=== PATIENT | female | born 1975 | race Caucasian/White ===

== ENCOUNTER 2022-05-02 10:41 | Emergency (ER) | payer OTHER ==
[~2022-05-02 10:41] MED LIST: BACTROBAN NASAL1 GM TOP
[2022-05-02] MEDS ORDERED: BACLOFEN 10MG T10 MG PO (14:48)
== END 2022-05-02 15:02 | disposition home or self-care (01) ==
LOC: FER 10:41
DX: M79.651 Pain in right thigh (principal); G40.909 Epilepsy, unspecified, not intractable, without status epilepticus; Z79.899 Other long term (current) drug therapy; Z87.891 Personal history of nicotine dependence; W22.8XXA Striking against or struck by other objects, initial encounter
CPT/HCPCS: 93971; 96372; J1100; J1885

== ENCOUNTER 2022-06-22 21:50 | Emergency (ER) | payer OTHER ==
[~2022-06-22 21:50] MED LIST changes: +BACLOFEN 10MG T10 MG PO
== END 2022-06-22 23:28 | disposition home or self-care (01) ==
LOC: FER 21:50
DX: S86.912A Strain of unspecified muscle(s) and tendon(s) at lower leg level, left leg, initial encounter (principal); J45.909 Unspecified asthma, uncomplicated; Z88.8 Allergy status to other drugs, medicaments and biological substances; Z91.040 Latex allergy status; Z28.311 Partially vaccinated for COVID-19
CPT/HCPCS: 73590; 96372; J1885

== ENCOUNTER 2022-07-19 20:31 | Emergency (ER) | payer OTHER ==
[2022-07-19] MEDS ORDERED: ULTRAM50 MG PO (21:34)
== END 2022-07-19 21:48 | disposition home or self-care (01) ==
LOC: FER 20:31
DX: M79.651 Pain in right thigh (principal); M25.562 Pain in left knee; J45.909 Unspecified asthma, uncomplicated
CPT/HCPCS: 96372; J1100; J1885

== ENCOUNTER 2022-07-27 10:10 | Emergency (ER) | payer OTHER ==
[~2022-07-27 10:10] MED LIST changes: +ULTRAM50 MG PO
[2022-07-27 12:13] LABS: EOSINOPHIL 3.8 % (0-5); HCT 39.7 % (37.0-47.0); HGB 12.2 g/dl (12.5-16.0); LYMPHOCYTE 32.1 % (15-48); MCH 26.6 pg (25.0-31.0); MCHC 30.7 g/dL (32.0-36.0); MCV 86.7 fL (78.0-100.0); MONOCYTE 6.4 % (0-12); MPV 8.9 fL (6.0-9.5); NEUTROPHIL 56.1 % (41-80); NRBC 0; PLT 345 K/uL (150-400); RBC 4.58 M/uL (4.20-5.40); RDW 14.4 % (11.5-14.0); WBC 8.9 K/uL (4.0-10.5)
[2022-07-27 12:16] LABS: INR 0.98 (0.9-1.2); PROTHROMBIN TIME 12.7 SECONDS (11.9-13.9)
[2022-07-27 12:32] LABS: ALBUMIN 3.2 g/dL (3.4-5.0); BILIRUBIN - TOTAL 0.3 mg/dL (0.2-1.0); BUN/CREAT RATIO (CALC) 14.3 RATIO; CREATININE 0.77 mg/dL (0.51-0.95); GLOBULIN (CALCULATION) 3.5 g/dL; POTASSIUM 4.2 mmol/L (3.5-5.1); TOTAL PROTEIN 6.7 g/dL (6.4-8.2)
[2022-07-27] MEDS ORDERED: TRAMADOL HCL50 MG PO (16:04)
[2022-07-27] MEDS ORDERED: ELIQUIS5 MG PO ×2 (16:04→16:06)
[2022-07-28] MEDS ORDERED: NORCO 5-325 TA1 EACH PO (15:59)
[2022-07-28] MEDS ORDERED: MEDROL 4MG DOSEP4 MG PO (15:59)
== END 2022-07-27 16:20 | disposition home or self-care (01) ==
LOC: FER 10:10
PROVIDERS: Emergency Medicine
DX: I82.442 Acute embolism and thrombosis of left tibial vein (principal); F17.290 Nicotine dependence, other tobacco product, uncomplicated; Z91.040 Latex allergy status
CPT/HCPCS: 36415; 80053; 85025; 85610; 93005; 93971; J1644

== ENCOUNTER 2022-07-28 13:29 | Emergency (ER) | payer OTHER ==
[~2022-07-28 13:29] MED LIST changes: +ELIQUIS5 MG PO; +TRAMADOL HCL50 MG PO
[2022-07-28 14:29] LABS: CORONAVIRUS 2019 SARS-COV-2 NEGATIVE (NEGATIVE); INFLUENZA A NAA NEGATIVE (NEGATIVE)
[2022-07-28] MEDS ORDERED: NORCO 5-325 TA1 EACH PO (15:59)
[2022-07-28] MEDS ORDERED: MEDROL 4MG DOSEP4 MG PO (15:59)
== END 2022-07-28 16:50 | disposition home or self-care (01) ==
LOC: FER 13:29
PROVIDERS: Nurse Practitioner Family
DX: J45.909 Unspecified asthma, uncomplicated (principal); Z88.8 Allergy status to other drugs, medicaments and biological substances; Z91.040 Latex allergy status; Z20.822 Contact with and (suspected) exposure to COVID-19
CPT/HCPCS: J1100; U0002

== ENCOUNTER 2022-07-30 08:30 | Inpatient (IN) | payer OTHER ==
[~2022-07-30] VITALS: Ht 144.8 cm; Wt 92.2 kg
[~2022-07-30 08:30] MED LIST changes: +MEDROL 4MG DOSEP4 MG PO; +NORCO 5-325 TA1 EACH PO
[2022-07-30 09:16] LABS: BASOPHIL 0.2 % (0-2); EOSINOPHIL 0.2 % (0-5); HCT 36.2 % (37.0-47.0); HGB 11.4 g/dl (12.5-16.0); MCHC 31.5 g/dL (32.0-36.0); MCV 85.8 fL (78.0-100.0); MONOCYTE 5.9 % (0-12); MPV 9.1 fL (6.0-9.5); NEUTROPHIL 81.2 % (41-80); NRBC 0; PLT 310 K/uL (150-400); RBC 4.22 M/uL (4.20-5.40); RDW 14.8 % (11.5-14.0); WBC 12.4 K/uL (4.0-10.5)
[2022-07-30 09:28] LABS: INR 1.15 (0.9-1.2); PROTHROMBIN TIME 14.4 SECONDS (11.9-13.9)
[2022-07-30 09:39] LABS: ALBUMIN 3.1 g/dL (3.4-5.0); BILIRUBIN - TOTAL 0.2 mg/dL (0.2-1.0); BUN/CREAT RATIO (CALC) 14.7 RATIO; CREATININE 0.95 mg/dL (0.51-0.95); GLOBULIN (CALCULATION) 3.8 g/dL; POTASSIUM 2.9 mmol/L (3.5-5.1); TOTAL PROTEIN 6.9 g/dL (6.4-8.2)
[2022-07-30 09:55] LABS: CORONAVIRUS 2019 SARS-COV-2 NEGATIVE (NEGATIVE); INFLUENZA A NAA NEGATIVE (NEGATIVE)
[2022-07-30 12:03] LABS: LACTIC ACID 4.3 mmol/L (0.4-1.9)
[2022-07-30] MEDS ORDERED: FEOSOL325 MG PO (13:17)
[2022-07-30] MEDS ORDERED: ELAVIL50 MG PO (13:19)
[2022-07-30] MEDS ORDERED: ABILIFY5 MG PO (13:19)
[2022-07-30] MEDS ORDERED: LAMICTAL (BLUE)25 MG PO (13:20)
[2022-07-30] MEDS ORDERED: ATARAX25 MG PO (13:21)
[2022-07-30] MEDS ORDERED: TOPAMAX100 MG PO (13:22)
[2022-07-30] MEDS ORDERED: ESTRACE1 MG PO (13:25)
[2022-07-30] MEDS ORDERED: PRILOSEC20 MG PO (13:25)
[2022-07-30] MEDS ORDERED: BACLOFEN 10MG T10 MG PO (13:26)
[2022-07-30] MEDS ORDERED: ADDERALL XR 2525 MG PO (13:27)
[2022-07-30] MEDS ORDERED: ELIQUIS5 MG PO (13:28)
[2022-07-30] MEDS ORDERED: TRAMADOL HCL50 MG PO (13:29)
[2022-07-30] MEDS ORDERED: MEDROL 4MG DOSEP4 MG PO (13:30)
[2022-07-30] MEDS ORDERED: NORCO 5/3251 EACH PO (13:31)
[2022-07-30 14:37] LABS: MAGNESIUM 1.9 mg/dL (1.8-2.4)
[2022-07-30 14:41] LABS: POTASSIUM 4.4 mmol/L (3.5-5.1)
--- NOTE | 2022-07-31 13:53 | NUR ---
07/31/22 Ms. Talavera is staying with a friend. She has a fractured femur 2 weeks ago. She was discharged from her job when she was not able to perform the duties. Ms. Talavera is anticipating surgery in the future. She requested information re: SSD application. She was educated to the criteria for SSD eligibility. Recommendations were made for her to apply for unemployment and foodstamps. A list of financil resources was provided to include: [employer], [employer], and [facility].
[2022-08-01 06:47] LABS: BUN/CREAT RATIO (CALC) 15.6 RATIO; CREATININE 0.9 mg/dL (0.51-0.95); POTASSIUM 3.7 mmol/L (3.5-5.1)
[2022-08-01 06:49] LABS: BASOPHIL 0.8 % (0-2); EOSINOPHIL 3.4 % (0-5); LYMPHOCYTE 30.9 % (15-48); MCH 26.4 pg (25.0-31.0); MCHC 30.3 g/dL (32.0-36.0); MCV 87.1 fL (78.0-100.0); MONOCYTE 5.5 % (0-12); NRBC 0; PLT 323 K/uL (150-400); RBC 3.79 M/uL (4.20-5.40); RDW 15.3 % (11.5-14.0); WBC 9.3 K/uL (4.0-10.5)
[2022-08-01] MEDS ORDERED: CEFDINIR300 MG PO (10:48)
[2022-08-01] MEDS ORDERED: ZITHROMAX500 MG PO (10:48)
[2022-08-01] MEDS ORDERED: NORCO 5-325 TA1 EACH PO (10:49)
== END 2022-08-01 11:38 | disposition home or self-care (01) | DRG 871 ==
LOC: FER 08:30 → FTCU 11:30
PROVIDERS: Emergency Medicine; ADMIT Internal Medicine
DX: A41.9 Sepsis, unspecified organism (principal); J18.9 Pneumonia, unspecified organism; J44.0 Chronic obstructive pulmonary disease with (acute) lower respiratory infection; I82.402 Acute embolism and thrombosis of unspecified deep veins of left lower extremity; Z68.41 Body mass index [BMI] 40.0-44.9, adult; R94.31 Abnormal electrocardiogram [ECG] [EKG]; Z20.822 Contact with and (suspected) exposure to COVID-19; S72.91XD Unspecified fracture of right femur, subsequent encounter for closed fracture with routine healing; M89.9 Disorder of bone, unspecified; E66.9 Obesity, unspecified; E87.6 Hypokalemia; K21.9 Gastro-esophageal reflux disease without esophagitis; F17.290 Nicotine dependence, other tobacco product, uncomplicated; G40.909 Epilepsy, unspecified, not intractable, without status epilepticus; F31.9 Bipolar disorder, unspecified; F60.9 Personality disorder, unspecified; X58.XXXD Exposure to other specified factors, subsequent encounter; Z91.040 Latex allergy status; Z88.8 Allergy status to other drugs, medicaments and biological substances; Z90.710 Acquired absence of both cervix and uterus; Z79.01 Long term (current) use of anticoagulants; Z79.899 Other long term (current) drug therapy
CPT/HCPCS: 36415; 36600; 71045; 71275; 80048; 80053; 82803; 83605; 83735; 83880; 84132; 84145; 84484; 85025; 85610; 85730; 87040; 93005; 94640; 94760; J0456; J0696; J1885; J7030; J7050; Q9967; U0002